=== PATIENT | female | born 1960 | race Caucasian/White ===

== ENCOUNTER 2025-06-09 12:14 | Outpatient (CLI) | payer OTHER ==
[~2025-06-09 12:14] MED LIST: CIPROFLOXACIN500 MG PO
== END 2025-06-09 12:20 | disposition home or self-care (01) ==
LOC: SONOGRAMA 12:14
PROVIDERS: ATTEND Internal Medicine Sports Medicine
DX: C73 Malignant neoplasm of thyroid gland (principal)